=== PATIENT | female | born 1970 | race Caucasian/White ===

== ENCOUNTER → 2020-08-05 16:11 | Outpatient (CLI) | payer OTHER, SELFPAY ==
--- NOTE | ~2020-08-05 | MM_ITS ---
EXAMINATION: MM screening gisella BI w bebo HISTORY: Screening TECHNIQUE: Craniocaudal and mediolateral oblique 3-D tomosynthesis images were obtained and synthetic 2-D images were generated. CAD analysis was submitted and interpreted. COMPARISON: No prior mammogram is available for comparison at this institution. BREAST PARENCHYMAL COMPOSITION: The breasts are heterogeneously dense, which may obscure small masses . FINDINGS: There are focal asymmetries in the medial aspect of the left breast on CC view. There are n o suspicious masses, calcifications or architectural distortion in the right breast to suggest malign jenn. IMPRESSION: 1. Focal left breast asymmetries medially on CC view. 2. Additional mammographic views and possible breast ultrasound are recommended. BI-RADS Category 0: Incomplete: Needs additional imaging evaluation. Reviewed, dictated and finalized at location A. IMPRESSION: 1. Focal left breast asymmetries medially on CC view. 2. Additional mammographic views and possible breast ultrasound are recommended . BI-RADS Category 0: Incomplete: Needs additional imaging evaluation.
== END ==
PROVIDERS: Visit Provider Obstetrics & Gynecology
DX: Z12.31 Encounter for screening mammogram for malignant neoplasm of breast (principal); R92.8 Other abnormal and inconclusive findings on diagnostic imaging of breast
CPT/HCPCS: 77063; 77067

== ENCOUNTER → 2020-12-17 08:18 | Outpatient (CLI) | payer OTHER, SELFPAY ==
--- NOTE | ~2020-12-17 | MMUS_ITS ---
EXAMINATION: MM diagnostic gisella LT w bebo, US breast LT complete HISTORY: Follow-up left breast asymmetry TECHNIQUE: Additional 3-D tomosynthesis images of left were performed and synthetic 2-D images were g enerated. CAD analysis was submitted and interpreted. High resolution complete left breast ultrasound was performed. COMPARISON: 08/05/2020 BREAST PARENCHYMAL COMPOSITION: Breast composed of scattered areas of fibroglandular density. FINDINGS: MAMMOGRAPHIC FINDINGS: There is a mass medial aspect of the left breast on CC view, not well visualized on MLO or mediolater al. There are no suspicious calcifications or architectural distortion. ULTRASOUND: Complete left breast ultrasound: At 9:00, 5 cm from the nipple, there is a 1 cm cyst corresponding to the mass seen on mammography. No suspicious solid or vascular lesions are identified. IMPRESSION: 1. No evidence for malignancy in the left breast. Benign cyst at 9:00, 5 cm from the nipple correspon ds to the mammographic finding. 2. Routine yearly screening mammogram and regular clinical breast examination are recommended. BI-RADS Category 2: Benign finding(s). Reviewed, dictated and finalized at location A. IMPRESSION: 1. No evidence for malignancy in the left breast. Benign cyst at 9:00, 5 cm fro m the nipple corresponds to the mammographic finding. 2. Routine yearly screening mammogram and regular clinical breast examination a re recommended. BI-RADS Category 2: Benign finding(s).
== END ==
PROVIDERS: Visit Provider Obstetrics & Gynecology
DX: R92.8 Other abnormal and inconclusive findings on diagnostic imaging of breast (principal)
CPT/HCPCS: 76641; 77061; 77065; G0279

== ENCOUNTER 2022-03-06 16:34 | Emergency (ER) | payer OTHER, SELFPAY ==
[2022-03-06 16:41] VITALS: BP 111/96; PULSE 83; RESP 24; TEMP 37; O2SAT 100
--- NOTE | 2022-03-06 16:51 | ECG_ITS ---
Measurements Intervals [place] Rate: 70 P: 55 [place]: 140 QRS: -13 QRSD: 82 T: 21 QT: 411 QTc: 446 Interpretive Statements SINUS RHYTHM WITH MARKED SINUS ARRHYTHMIA NO PREVIOUS ECG AVAILABLE FOR COMPARISON Electronically Signed On 03-07-2022 15:19:04 [employer] by Almaz Ramey M.D.
[2022-03-06 17:04] LABS: Basophils Percent Auto 0.2 % (0.2-1.2); Eosinophils Percent Auto 0.2 % (0-4.4); Hematocrit 46.3 % (37.0-47.0); Hemoglobin 16.4 g/dL (12.0-15.0); Immature Granulocyte Absolute 0.03 K/mm3 (0.00-0.031); Immature Granulocyte Percent A 0.2 % (0-0.5); Lymphocytes Absolute Auto 3.71 K/mm3 (0.9-3.2); Lymphocytes Percent Auto 29.7 % (18.3-44.2); Mean Corpuscular HGB Conc 35.4 g/dl (32-36); Mean Corpuscular Hemoglobin 33.6 pg (26-34); Mean Corpuscular Volume 94.9 fl (80-100); Mean Platelet Volume 10.3 fl (7.4-10.4); Monocytes Absolute Auto 1.2 K/mm3 (0.1-0.6); Monocytes Percent Auto 9.8 % (2.6-8.5); Neutrophils Absolute Auto 7.5 K/mm3 (1.3-6.7); Neutrophils Percent Auto 59.9 % (45.5-73.1); Platelet Count Result 459 k/mm3 (150-375); Red Blood Count 4.88 M/mm3 (4.2-5.4); Red Cell Distribution Width 12.6 % (11.5-14.5); White Blood Count 12.5 K/mm3 (4.5-10.0)
[2022-03-06 17:11] LABS: Alanine Aminotransferase 31 U/L (6-35); Alkaline Phosphatase 83 U/L (38-126); Anion Gap 15 mmol/L (8-16); Aspartate Amino Transferase 31 U/L (14-36); Bilirubin,Total 0.8 mg/dL (0.2-1.3); Blood Urea Nitrogen 10 mg/dL (7-17); Calcium 10.4 mg/dL (8.4-10.2); Carbon Dioxide 21 mmol/L (22-30); Chloride 102 mmol/L (98-107); Estimated Glomerular Filt Rate > 60; Glucose 129 mg/dL (65-110); Lipase 78 U/L (23-300); Potassium 3.4 mmol/L (3.4-5.0); Sodium 138 mmol/L (137-145)
[2022-03-06 17:36] LABS: Influenza A QL RT-PCR Negative (Negative); Influenza B QL RT-PCR Negative (Negative); SARS-CoV-2 RNA PCR Negative
[2022-03-06 21:51] LABS: Appearance Urine Clear (Clear); Bilirubin Urine 1+ (Negative); Blood Urine Negative (Negative); Glucose Urine UA Negative (Negative); Ketones Urine 4+ mg/dL (Negative); Leukocyte Esterase Ur Negative LEU/UL (Negative); Nitrate Urine Negative (Negative); Protein Urine 2+ mg/dL (Negative); Specific Grav Ur 1.015 (1.001-1.035); pH Urine >=9.0 (5.0-9.0)
[2022-03-06 21:58] LABS: Bacteria Urine Trace /hpf; Mucus Urine Heavy /lpf; Squamous Epithelial Cell Urine Occasional /hpf (Few); WBC Urine 0-3 /hpf
[2022-03-06 22:01] LABS: Add Urine Microscopic? YES; Color Urine Light Amber (Yellow)
[2022-03-06] MEDS: HALOPERIDOL LACTATE 5 MG/ML VIAL 2.5 MG IM (22:24)
[2022-03-06] MEDS: METOCLOPRAMIDE HCL INJ 10 MG/2 ML VIAL IV PUSH (22:24)
[2022-03-06] MEDS: diphenhydrAMINE HCl INJ 50 MG/ML VIAL 25 MG IV PUSH (22:24)
[2022-03-06] MEDS: SODIUM CHLORIDE 0.9% IV 1,000 ML 999 ML IV CONT (22:25)
[2022-03-06 22:42] LABS: Amphetamine Screen Urine Negative (Negative); Barbiturate Screen Urine Negative (Negative); Benzodiazepines Screen Urine Negative (Negative); Cannabinoid Screen Urine Positive (Negative); Cocaine Screen Urine Negative (Negative); Methadone Screen Urine Negative (Negative); Opiate Screen Urine Negative (Negative); Phencyclidine Screen Urine Negative (Negative)
--- NOTE | 2022-03-06 23:42 | ED.NAVMDI ---
HPI - Nausea/Vomiting/Diarrhea General Chief complaint: Nausea/Vomiting/Diarrhea Stated complaint: N,V,D and dizziness Time Seen by Provider: 03/06/22 21:09 History of Present Illness HPI Narrative: 51-year-old female presents today with complaints of nausea and vomiting that started yesterday. Patient states the nausea and vomiting has been worse today and been unable to keep any fluids down. Patient denies abdominal pain, fever, body aches, chills, or sick contacts. Patient denies any diarrhea. Related Data Allergies Allergy/AdvReac Type Severity Reaction Status Date / Time No Known Allergies Allergy Verified 03/06/22 23:42 Review of Systems Review of Systems: CONSTITUTIONAL: Denies fever, chills, or sweats. EYES: Denies visual changes, redness, or discharge. ENT: Denies rhinorrhea, congestion, sore throat, or otalgia. CARDIOVASCULAR: Denies chest pain, palpitations, or edema. RESPIRATORY: Denies cough or dyspnea. GASTROINTESTINAL: Nausea with vomiting. Denies abdominal pain or diarrhea. GENITOURINARY: Denies dysuria or hematuria. MUSCULOSKELETAL: Denies back pain, joint pain, or myalgia. [facility] Social History Social History Smoking status: Smoker, status unknown Alcohol intake: current Exam Narrative: GENERAL: Well-appearing, well-nourished, and in no acute distress. HEAD: Normocephalic, atraumatic. EYES: PERRLA and EOMI. ENT: Nares clear, no rhinorrhea or epistaxis. Mucous membranes moist. Oropharynx without tonsillar hypertrophy exudate or other lesions. Bilateral TMs pearly adhikari nonbulging NECK: Supple. No adenopathy or masses. No carotid bruits or JVD CHEST: Clear to auscultation. No respiratory distress. No wheezes rales or rhonchi HEART: Regular rate and rhythm. No murmur heard. Normal peripheral pulses. ABDOMEN: Soft, nontender, nondistended, normal active bowel sounds. EXTREMITIES: Normal range of motion. No edema. SKIN: Warm, dry, no rash. NEURO: No focal deficits. Alert and oriented x3. PSYCH: Normal mood and affect. Course Reevaluation(s) Reevaluation #1: Patient with improvement after medications does not want to stay for the rest of her IV fluids. States a little bit of nausea but no vomiting. Able to tolerate p.o. fluids at this time. Date: 03/06/22 Time: 23:40 Vital Signs Vital signs: Vital Signs Temperature 98.6 F 03/06/22 16:41 Pulse Rate 83 03/06/22 16:41 Respiratory Rate 24 H 03/06/22 16:41 Blood Pressure 111/96 H 03/06/22 16:41 Pulse Oximetry 100 03/06/22 16:41 Oxygen Delivery Room Air 03/06/22 16:41 Temperature 98.6 F 03/06/22 16:41 Pulse Rate 83 03/06/22 16:41 Respiratory Rate 24 H 03/06/22 16:41 Blood Pressure 111/96 H 03/06/22 16:41 Pulse Oximetry 100 03/06/22 16:41 Oxygen Delivery Room Air 03/06/22 16:41 MDM - Nausea/Vomiting/Diarrhea MDM Narrative Medical decision making narrative: 51-year-old female HPI as noted. Work-up included CBC, CMP, COVID, flu, lipase, EKG, and urinalysis. CMP and CT BC without concerning findings. COVID and flu negative. Lipase within normal limits. EKG without any concerning findings. Urinalysis negative. Suspect nausea vomiting could be from cannabis usage. Patient tolerating p.o. and discharged home. Differential Diagnosis Differential diagnosis: Likely traveler's diarrhea, food poisoning, gastroenteritis and other (Nausea with vomiting, cannabinoids hyperemesis syndrome) Lab Data Attestation: I reviewed the patient's lab results. 03/06/22 16:50 03/06/22 16:50 Labs: Lab Results 03/06/22 03/06/22 03/06/22 Range/Units 16:50 16:50 16:50 WBC 12.5 H (4.5-10.0) K/mm3 RBC 4.88 (4.2-5.4) M/mm3 Hgb 16.4 H (12.0-15.0) g/dL Hct 46.3 (37.0-47.0) % MCV 94.9 (80-100) fl MCH 33.6 (26-34) pg MCHC 35.4 (32-36) g/dl RDW 12.6 (11.5-14.5) % Plt Count 459 H (150-375) k/mm3
== END 2022-03-07 00:14 | disposition home or self-care (01) ==
PROVIDERS: Emergency Medicine; Emergency Provider Nurse Practitioner Family
DX: R11.2 Nausea with vomiting, unspecified (principal); Z20.822 Contact with and (suspected) exposure to COVID-19
CPT/HCPCS: 36415; 80053; 80307; 81001; 83690; 85025; 87636; 93005; 96361; 96372; 96374; 96375; 99284; J1200; J1630; J2765; J7030

== ENCOUNTER → 2022-08-15 14:52 | Outpatient (CLI) | payer OTHER, SELFPAY ==
--- NOTE | ~2022-08-15 | MM_ITS ---
EXAMINATION: MM screening gisella BI w bebo HISTORY: Screening mammogram, family history of breast cancer in her mother and sister. TECHNIQUE: Craniocaudal and mediolateral oblique 3-D tomosynthesis images were obtained and synthetic 2-D images were generated. CAD analysis was submitted and interpreted. COMPARISON: 12/17/2020, 08/05/2020 BREAST PARENCHYMAL COMPOSITION: The breasts are heterogeneously dense, which may obscure small masses . FINDINGS: No suspicious mass, calcification, or architectural distortion are identified in either erin ast to suggest malignancy. There has been no suspicious interval change. IMPRESSION: 1. No mammographic evidence of malignancy. 2. Recommend routine screening mammography in one year. BI-RADS Category 1: Negative Reviewed, dictated and finalized at location A.
== END ==
PROVIDERS: PCP Nurse Practitioner; Visit Provider Obstetrics & Gynecology
DX: Z12.31 Encounter for screening mammogram for malignant neoplasm of breast (principal)
CPT/HCPCS: 77063; 77067

== ENCOUNTER 2025-01-08 14:14 | Emergency (ER) | payer OTHER, SELFPAY ==
[2025-01-08 14:20] VITALS: BP 153/103; PULSE 92; RESP 22; TEMP 36.4; O2SAT 100
--- NOTE | 2025-01-08 15:20 | ED_ITS ---
HPI - General Adult General Chief complaint: Nausea/Vomiting/Diarrhea Stated complaint: N/V x5 days, dizzy, weak Time Seen by Provider: 01/08/25 15:20 History of Present Illness HPI narrative: 54-year-old female with history of abdominal migraine presented emergency department for evaluation for persistent nausea vomiting without diarrhea. Patient states this is identical to her previous episodes nausea and vomiting. Patient states she is undergoing a lot of emotional stress because she just had a move over the weekend. Patient reports that this is most likely the trigger for her abdominal migraine. Patient was taking Zofran for nausea control with feels is not helping. Patient denies any associated abdominal pain but does reports associated nausea. Patient does admit to THC use Related Data Home Medications ?Medication ?Instructions ?Recorded ?Confirmed ?Last Taken ?Type lisinopril 40 mg tablet 40 mg PO DAILY 03/29/2202/01 Unknown History sertraline 50 mg tablet (Zoloft) 50 mg PO DAILY 02/28/23 Unknown History Allergies Allergy/AdvReac Type Severity Reaction Status Date / Time No Known Allergies Allergy Verified 01/08/25 15:26 Review of Systems 2 Review of Systems: All systems reviewed & are unremarkable except as noted in HPI and below PMFSH Past Medical History Medical History (Updated 01/08/25 @ 17:38 by Jose Antonio Bundy MD) HTN (hypertension), benign Screening mammogram for breast cancer Anxiety Depression High blood pressure Surgical History Surgical History H/O removal of cyst from finger Family History Family History Other Hypertension Social History Social History (Updated 10/30/22 @ 08:45 by Amee Bynum CMA) Smoking status: Smoker, status unknown Tobacco type: e-cigarettes/vaping Alcohol intake: current Alcohol use details: soically Substance use: current Substance use type: marijuana Lack of Transportation: No Lack of Food: Never True Current Housing: I Have Housing Concerned About Future Housing: No Difficulty Paying Gas/Electric Bills: No Difficulty Paying for Meds: No Currently Unemployed: No Education: High School Diploma/GED Living arrangements: alone Occupation/Education: occupation Gender identity (if verbalized by the patient): Female Sexual Orientation (if Verbalized by the Patient): Straight or Heterosexual Exam 2 Narrative: APPEARANCE: Well appearing, no pain, no distress, well-nourished. HEAD: normocephalic, atraumatic. EYES: PERRLA/EOMI, conjunctivae clear. NOSE: Normal no drainage EARS:TMS clear with good light reflex. THROAT: Pharynx clear, no exudate. NECK: Supple. No adenopathy, no masses. RESPIRATORY: Airway patent, respirations nonlabored. Clear to auscultation bilaterally, no rales, rhonchi, wheezing. CARDIOVASCULAR: Regular rate and rhythm without murmurs rubs or gallops. ABDOMINAL: Soft, nontender, nondistended, normal bowel sounds MUSCULOSKELETAL: Moves all extremities. Strength/ROM intact, No edema, No calf tenderness. NEURO: Alert. Cranial nerves II through XII intact. Grossly intact SKIN: Warm, dry. Normal Color Course Vital Signs Vital signs: Vital Signs Temperature 97.5 F L 01/08/25 14:20 Pulse Rate 92 01/08/25 14:20 Respiratory Rate 22 H 01/08/25 14:20 Blood Pressure 153/103 H 01/08/25 14:20 Pulse Oximetry 100 01/08/25 14:20 Temperature 98.5 F 01/08/25 18:25 Pulse Rate 82 01/08/25 18:25 Respiratory Rate 16 01/08/25 18:25 Blood Pressure 174/103 H 01/08/25 18:25 Pulse Oximetry 100 01/08/25 18:25 Oxygen Delivery Room Air 01/08/25 15:[address] [facility] Narrative Medical decision making narrative: 54-year-old female present emergency department for evaluation for nausea vomiting consistent with her previous abdominal migraines. Patient was treated with IV Reglan and 1L lactated Ringer's on on initial evaluation patient reports he does feel significantly improved. Patient has no abdominal tenderness to palpation reports that her nausea is resolved. Patient is resting comfortably. Patient is afebrile but does have a leukocytosis of 11.2 hemoglobin of 15.8. Patient does have a mild hypokalemia. UA was positive for ketones and patient was treated with IV fluids. I am concerned the some of her symptoms may be secondary to cannabinoid hyperemesis syndrome. Differential Diagnosis Differential Diagnosis: Colitis, diverticulitis, cannabinoid hyperemesis, abdominal migraine Vital Signs Vital Signs: Vital Signs Temperature 97.5 F L 01/08/25 14:20 Pulse Rate 92 01/08/25 14:20 Respiratory Rate 22 H 01/08/25 14:20 Blood Pressure 153/103 H 01/08/25 14:20 Pulse Oximetry 100 01/08/25 14:20 Temperature 98.5 F 01/08/25 18:25 Pulse Rate 82 01/08/25 18:25 Respiratory Rate 16 01/08/25 18:25 Blood Pressure 174/103 H 01/08/25 18:25 Pulse Oximetry 100 01/08/25 18:25 Oxygen Delivery Room Air 01/08/25 15:26 Lab Data Lab results reviewed: Yes I reviewed the patient's lab results. 01/08/25 15:38 01/08/25 15:38 Labs: Lab Results 01/08/25 01/08/25 01/08/25 Range/Units 15:37 15:38 16:41 WBC 11.2 H (4.5-10.0) K/mm3 RBC 4.97 (4.2-5.4) M/mm3 Hgb 15.8 H (12.0-15.0) g/dL Hct 45.2 (37.0-47.0) % MCV 90.9 (80-100) fl MCH 31.8 (26-34) pg MCHC 35.0 (32-36) g/dl RDW 12.4 (11.5-14.5) % Plt Count 404 H (150-375) k/mm3 MPV 10.0 (7.4-10.4) fl Immature Gran % (Auto) 0.9 H (0-0.5) % Neut % (Auto) 79.6 H (45.5-73.1) % Lymph % (Auto) 11.1 L (18.3-44.2) % [place] % (Auto) 8.1 (2.6-8.5) % Eos % (Auto) 0.0 (0-4.4) % Baso % (Auto) 0.3 (0.2-1.2) % Lymph # (Auto) 1.24 (0.9-3.2) K/mm3 [place] # (Auto) 0.9 H (0.1-0.6) K/mm3 Eos # (Auto) 0.0 (0-0.3) K/mm3 Baso # (Auto) 0.0 (0.0-0.1) K/mm3 Abs Immat Gran (auto) 0.10 H (0.00-0.031) K/mm3 Absolute Neuts (auto) 8.9 H (1.3-6.7) K/mm3 Absolute Nucleated RBC 0.000 (0.0-0.012) K/mm3 Nucleated RBC % 0.0 (0.0-0.2) % Sodium 134 L (137-145) mmol/L Potassium 3.0 L (3.4-5.0) mmol/L Chloride 92 L (98-107) mmol/L Carbon Dioxide 27 (22-30) mmol/L Anion Gap 15 H (4-12) mmol/L BUN 10 (7-17) mg/dL Creatinine 0.78 (0.7-1.0) mg/dL Estim Creat Clear Calc 84 ml/min Estimated GFR > 60 (59 - ) Glucose 116 H (65-110) mg/dL Calcium 9.9 (8.4-10.2) mg/dL Magnesium 2.3 (1.6-2.3) mg/dL Total Bilirubin 0.9 (0.2-1.3) mg/dL AST 61 H (14-36) U/L ALT 65 H (6-35) U/L Alkaline Phosphatase 70 (38-126) U/L Total Protein 8.9 H (6.3-8.2) g/dL Albumin 4.9 (3.5-5.1) g/dL Lipase 70 (23-300) U/L Urine Color Yellow (Yellow) Urine Appearance Clear (Clear) Urine pH >=9.0 H (5.0-9.0) Ur Specific [place] 1.024 (1.001-1.035) Urine Protein 1+ H (Negative) mg/dL Urine Glucose (UA) Negative (Negative) mg/dL Urine Ketones 4+ H (Negative) mg/dL Ur Blood (Man) Negative (Negative) Urine Nitrate Negative (Negative) Urine Bilirubin Negative (Negative) Urine Urobilinogen 1.0 (<2.0) mg/dL Add Ur Microanalysis Reviewed Leukocyte Esterase Rfl Trace H (Negative) GALEN/UL Urine RBC 6-10 H (0-2) /hpf Urine WBC 0-5 (0-3) /hpf Ur Squamous Epith Cells Few (Few) /hpf Urine Bacteria None seen /hpf Urine Casts 3-5 POC Urine HCG, Qual (Negative) 01/08/25 Range/Units 16:51 WBC (4.5-10.0) K/mm3 RBC (4.2-5.4) M/mm3 Hgb (12.0-15.0) g/dL Hct (37.0-47.0) % MCV (80-100) fl MCH (26-34) pg MCHC (32-36) g/dl RDW (11.5-14.5) % Plt Count (150-375) k/mm3 MPV (7.4-10.4) fl Immature Gran % (Auto) (0-0.5) % Neut % (Auto) (45.5-73.1) % Lymph % (Auto) (18.3-44.2) % [place] % (Auto) (2.6-8.5) % Eos % (Auto) (0-4.4) % Baso % (Auto) (0.2-1.2) % Lymph # (Auto) (0.9-3.2) K/mm3 [place] # (Auto) (0.1-0.6) K/mm3 Eos # (Auto) (0-0.3) K/mm3 Baso # (Auto) (0.0-0.1) K/mm3 Abs Immat Gran (auto) (0.00-0.031) K/mm3 Absolute Neuts (auto) (1.3-6.7) K/mm3 Absolute Nucleated RBC (0.0-0.012) K/mm3 Nucleated RBC % (0.0-0.2) % Sodium (137-145) mmol/L Potassium (3.4-5.0) mmol/L Chloride (98-107) mmol/L Carbon Dioxide (22-30) mmol/L Anion Gap (4-12) mmol/L BUN (7-17) mg/dL Creatinine (0.7-1.0) mg/dL Estim Creat Clear Calc ml/min Estimated GFR (59 - ) Glucose (65-110) mg/dL Calcium (8.4-10.2) mg/dL Magnesium (1.6-2.3) mg/dL Total Bilirubin (0.2-1.3) mg/dL AST (14-36) U/L ALT (6-35) U/L Alkaline Phosphatase (38-126) U/L Total Protein (6.3-8.2) g/dL Albumin (3.5-5.1) g/dL Lipase (23-300) U/L Urine Color (Yellow) Urine Appearance (Clear) Urine pH (5.0-9.0) Ur Specific [place] (1.001-1.035) Urine Protein (Negative) mg/dL Urine Glucose (UA) (Negative) mg/dL Urine Ketones (Negative) mg/dL Ur Blood (Man) (Negative) Urine Nitrate (Negative) Urine Bilirubin (Negative) Urine Urobilinogen (<2.0) mg/dL Add Ur Microanalysis Leukocyte Esterase Rfl (Negative) GALEN/UL Urine RBC (0-2) /hpf Urine WBC (0-3) /hpf Ur Squamous Epith Cells (Few) /hpf Urine Bacteria /hpf Urine Casts POC Urine HCG, Qual Negative (Negative) Discharge Plan Discharge Clinical Impression: Nausea & vomiting Patient Disposition: Home Condition: Stable Instructions: Antibiotic Form, Acute Nausea and Vomiting (ED) Additional Instructions: Zofran as needed for nausea control. Reglan as needed for additional nausea control. Have close follow-up with GI. If you have any worsening symptoms then please call or return to the emergency department. Patient Language: Lebanese Prescriptions: New metoclopramide HCl [Reglan] 10 mg tablet 10 mg PO Q6H PRN (Reason: nausea and vomiting) Qty: 14 0RF No Action lisinopril 40 mg tablet 40 mg PO DAILY sertraline [Zoloft] 50 mg tablet 50 mg PO DAILY Mirena 21 mcg/24 hours (8 yrs) 52 mg intrauterine device 1 device intrauterine ONCE Qty: 1 0RF Veozah 45 mg tablet 45 mg PO DAILY Qty: 90 2RF Follow-up/Referrals: Shaun,SHANA Mancilla [Primary Care Provider, Unknown]
[2025-01-08 15:26] VITALS: BP 172/110; PULSE 76; RESP 20; TEMP 36.9; O2SAT 100
[2025-01-08 15:43] LABS: Hematocrit 45.2 % (37.0-47.0); Hemoglobin 15.8 g/dL (12.0-15.0); Immature Granulocyte Percent A 0.9 % (0-0.5); Lymphocytes Absolute Auto 1.24 K/mm3 (0.9-3.2); Mean Corpuscular HGB Conc 35.0 g/dl (32-36); Mean Corpuscular Hemoglobin 31.8 pg (26-34); Mean Corpuscular Volume 90.9 fl (80-100); Nucleated Red Blood Cells Absolute Auto 0.000 K/mm3 (0.0-0.012); Nucleated Red Blood Cells Perc 0.0 % (0.0-0.2); Platelet Count Result 404 k/mm3 (150-375); Red Blood Count 4.97 M/mm3 (4.2-5.4); White Blood Count 11.2 K/mm3 (4.5-10.0)
[2025-01-08 15:54] LABS: Alanine Aminotransferase 65 U/L (6-35); Albumin Level 4.9 g/dL (3.5-5.1); Alkaline Phosphatase 70 U/L (38-126); Anion Gap 15 mmol/L (4-12); Aspartate Amino Transferase 61 U/L (14-36); Bilirubin,Total 0.9 mg/dL (0.2-1.3); Blood Urea Nitrogen 10 mg/dL (7-17); Calcium 9.9 mg/dL (8.4-10.2); Carbon Dioxide 27 mmol/L (22-30); Chloride 92 mmol/L (98-107); Estimated CRCL calculation 84 ml/min; Estimated Glomerular Filt Rate > 60; Glucose 116 mg/dL (65-110); Lipase 70 U/L (23-300); Potassium 3.0 mmol/L (3.4-5.0); Sodium 134 mmol/L (137-145); Total Protein 8.9 g/dL (6.3-8.2)
[2025-01-08 16:19] VITALS: BP 167/104; BP 171/98; PULSE 78; PULSE 83
[2025-01-08 16:20] VITALS: BP 164/106; PULSE 107
[2025-01-08 16:37] LABS: Magnesium 2.3 mg/dL (1.6-2.3)
[2025-01-08] MEDS: LACTATED RINGERS 1,000 ML 999 ML IV CONT (16:38)
[2025-01-08] MEDS: METOCLOPRAMIDE HCL INJ 10 MG/2 ML VIAL IV PUSH (16:38)
[2025-01-08 16:39] VITALS: BP 172/103; PULSE 76; RESP 16; O2SAT 100
[2025-01-08 16:52] LABS: BEDSIDEPREGUCG Negative (Negative)
[2025-01-08 17:32] LABS: Add Urine Microscopic? YES; Appearance Urine Clear (Clear); Glucose Urine UA Negative (Negative); Leukocyte Esterase Ur Trace LEU/UL (Negative); Need Manual Microscopic Reviewed; Nitrate Urine Negative (Negative); Specific Grav Ur 1.024 (1.001-1.035)
[2025-01-08 18:25] VITALS: BP 174/103; PULSE 82; RESP 16; TEMP 36.9; O2SAT 100
== END 2025-01-08 18:26 | disposition home or self-care (01) ==
PROVIDERS: Emergency Provider Emergency Medicine; PCP Nurse Practitioner
DX: R11.2 Nausea with vomiting, unspecified (principal); I10 Essential (primary) hypertension; F41.9 Anxiety disorder, unspecified; F32.A Depression, unspecified; F17.290 Nicotine dependence, other tobacco product, uncomplicated; Z79.899 Other long term (current) drug therapy; Z97.5 Presence of (intrauterine) contraceptive device
CPT/HCPCS: 36415; 80053; 81001; 81025; 83690; 83735; 85025; 96361; 96374; 99284; J2765; J7120

== ENCOUNTER 2025-03-03 10:19 | Outpatient (CLI) | payer OTHER, SELFPAY ==
--- NOTE | ~2025-03-03 | CT_ITS ---
EXAMINATION: CT abdomen w con DATE: 03/03/2025 10:54 INDICATION: Splenomegaly. TECHNIQUE: Computed tomography (CT) of the abdomen was performed with 100 mL Omnipaque 350 intravenous contrast. Automated exposure control and iterative reconstruction technique were employed. The dose-length product was 632.91 mGy-cm. COMPARISON: None. FINDINGS: The visualized portions of the lung bases demonstrate mild atelectasis. No pleural effusion. The heart size is normal. No pericardial effusion. There is diffuse hepatic steatosis. The spleen is normal and measures 10.8 cm. The gallbladder, pancreas, adrenal glands, and kidneys are normal. The re are no dilated loops of bowel. There are no pathologically enlarged lymph nodes. There is no free intraperitoneal fluid. There is mild thoracic spondylosis. IMPRESSION: 1. Normal spleen. 2. Diffuse hepatic steatosis. Reviewed, dictated and finalized at location E. [employer]
[2025-03-03 10:42] LABS: Estimated Glomerular Filt Rate > 60
== END 2025-03-03 10:20 | disposition home or self-care (01) ==
LOC: MICIMG 10:19
PROVIDERS: PCP Nurse Practitioner; Visit Provider Nurse Practitioner
DX: R16.1 Splenomegaly, not elsewhere classified (principal); Z80.0 Family history of malignant neoplasm of digestive organs; R19.02 Left upper quadrant abdominal swelling, mass and lump; K76.0 Fatty (change of) liver, not elsewhere classified
CPT/HCPCS: 74160; Q9967